=== PATIENT | male | born 1935 | race Caucasian/White ===

== ENCOUNTER → 2020-02-04 | Outpatient (CLI) | payer OTHER | LOC: LABMALL 12:42 → SJCVC 12:42 → LAB 12:42 | PROVIDERS: ATTEND Family Medicine | DX: Z20.828 Contact with and (suspected) exposure to other viral communicable diseases (principal) ==

== ENCOUNTER 2021-05-15 12:35 | Inpatient (IN) | payer OTHER, MEDICARE ==
[~2021-05-15] VITALS: Ht 180.3 cm; Wt 80.8 kg
[2021-05-15 12:38] VITALS: BP 136/55
[2021-05-15 13:24] LABS: ABSOLUTE NEUTROPHILS 6.8 thou/uL (1.4-8.2); BASOPHILS 0.4 % (0.0-2.0); EOSINOPHILS 0.5 % (0.0-3.0); HEMATOCRIT 42.3 % (42.0-52.0); HEMOGLOBIN 14.5 gm/dL (14.0-18.0); LYMPHOCYTES 16.2 % (24.0-44.0); MCH 33.7 pg (26.0-34.0); MCHC 34.2 g/dL (28.0-37.0); MCV 98.4 fL (80.0-100.0); MONOCYTES 9.5 % (1.0-8.0); PLATELET COUNT 210 thou/uL (150-400); POLYS 73.4 % (36.0-66.0); RDW 13.3 % (10.5-14.5); WBC 9.2 thou/uL (4.0-11.0)
[2021-05-15 13:30] LABS: CALCIUM 8.6 mg/dL (8.5-10.1); CREATININE 1.1 mg/dL (0.7-1.3); POTASSIUM 4.3 mmol/L (3.5-5.1)
[2021-05-15 13:36] LABS: ALBUMIN 3.9 g/dL (3.4-5.0); TOTAL BILIRUBIN 0.5 mg/dL (0.2-1.0); TOTAL PROTEIN 7.1 g/dL (6.4-8.2)
[2021-05-15 14:18] VITALS: BP 122/59
[2021-05-15 14:27] LABS: INR 1.14; PROTIME 12.4 Seconds (10.5-12.1)
[2021-05-15 14:30] VITALS: BP 154/93
--- NOTE | 2021-05-15 16:24 | EKG ---
[place] [address] [facility] [place] [address] ELECTROCARDIOGRAM REPORT Name: KAVON OSORIO Room #: 214-P ADM IN M.R.#: [id number] Admission: 05/15/21 Attend Phys: Rajeev Pittman MD Discharge: Date of : 39 Report #: [id number] [facility] ED Test Date: 2021-05-15 Test Time: 12:42:51 Pat Name: KAVON OSORIO Department: Room: 214 P Gender: M Nailer Machine: : [id number] Requested By: Mirtha Harp Order Number: [id number] MD: Sd Moore Measurements Intervals [place] Rate: 39 P: 9 AL: 306 QRS: 51 QRSD: 145 T: 29 QT: 559 QTc: 451 Interpretive Statements Sinus rhythm with complete heart block Right bundle branch block No previous ECG available for comparison Electronically Signed On 05-15-2021 16:24:43 MANUFACTURING APPLICATIONS ENGINEER by Sd Moore [email or web address] <ELECTRONICALLY SIGNED> By: Sd Moore MD, [facility] 05/15/21 1624 1242 1242 Sd Moore MD, FACC /EPI
--- NOTE | 2021-05-15 16:48 | NUR ---
PT ARRIVED TO CCU AT APPROXIMATELY 1430. VITAL SIGNS WERE STABLE EXCEPT FOR HR AND RHYTHM. PT WAS IN A THIRD DEGREE HEART BLOCK WITH HRs LOW 10-20s, HAVING LONG HEART PAUSES AND MULTIPLE P WAVES IN A ROW WITH NO QRS COMPLEXES. THE PT INITIALLY DID NOT COMPLAIN OF ANY SYMPTOMS BUT BEGAN EXPERIENCING SLIGHT DIZZINESS. BP WAS CHECKED AND WAS 157/97. D/T CARDIAC STATUS, A RAPID RESPONSE WAS CALLED AND DR. VALDOVINOS ARRIVED AT BEDSIDE. THE DECISION WAS MADE TO START THE PT ON A DOPAMINE GTT TO INCREASE HR AND GO IMMEDIATELY TO THE METHODOLOGIST FOR PACEMAKER PLACEMENT. DR. FERNANDES WAS NOTIFIED BY THE METHODOLOGIST NURSE. PT OFFICIALLY LEFT UNIT AT APPROXIMATELY 1503 FOR THE METHODOLOGIST. PRIOR TO LEAVING, THE PT REQUESTED WE TRY AND CONTACT HIS FAMILY FOR WHICH HE HAD NO CONTACT INFORMATION AVAILABLE. HIS PCP WAS CONTACTED BUT THEY DID NOT HAVE ANY NEXT OF KIN CONTACT INFORMATION. THROUGH EXTENSIVE INVESTIGATION, THE PT'S GRANDDAUGHTER, CHRIS OSORIO, WAS REACHED, AND SHE WAS ABLE TO PROVIDE CONTACT INFORMATION FOR THE PT'S SON WHO LIVES IN [place], AMARA OSORIO. NAMES OF CHILDREN AND THEIR PHONE NUMBERS WILL BE LISTED IN THE SUBSEQUENT NURSING NOTE.
--- NOTE | 2021-05-15 16:59 | NUR ---
PATIENT'S CHILDREN AND CONTACT INFORMATION: AMARA OSORIO [phone] GERSON KIM [phone] ROMINA OSORIO [phone]
[2021-05-15 20:00] VITALS: BP 140/77
[2021-05-16] VITALS (7 sets, daily range): BP systolic 140–169; BP diastolic 70–89
--- NOTE | 2021-05-16 07:04 | NUR ---
PATIENT CARES ASSUMED AT SHIFT CHANGE. PATIENT ASSESSED AND MEDS PASSED. PATIENT DID SLEEP THE MAJORITY OF THIS SHIFT. PATIENT HAD NO REQUEST. ROUNDS DONE. THE BED IS IN A LOW AND LOCKED POSITION
--- NOTE | 2021-05-16 11:30 | NUR ---
NOTIFIED THAT PATIENT IS READY FOR DC
--- NOTE | 2021-05-16 11:31 | NUR ---
ASSUMED CARE OF PATIENT AT 0700. PATIENT A&OX4, ON RA, SR ON TELE WITH NO C/O PAIN. AWITING DC ORDERS FROM .
--- NOTE | 2021-05-16 12:12 | NUR ---
PATIENT ADMITTED FOR COMPLETE HEART BLOCK. CHART REVIEWED AND DISCUSSED WITH CARE TEAM. CM MET WITH PT THIS DAY. PTS SON AT BEDSIDE. CM ROLE INTRODUCED. PT INFORMED CM HE LIVES AT HOME ALONE. PT REPORTS NO USE OF ASST DEVICE MACHINE TOOL MECHANIC AND BEING INDEP WITH ADLS AND MOBILITY MACHINE TOOL MECHANIC. PT UP ADLIB IN ROOM. APPEARED A&O. PT REPORTS NO NEEDS ONCE MEDICALLY STABLE TO DC. CM DISCUSSED POSSIBLE HOME HEALTH IF NEEDED. PT DECLINED. PLAN FOR PT TO DC TOMORROW. NO PT/OT ORDERS. CM AVAILABLE IF NEEDED FOR DC PLANNING. NO FURTHER CM INTERVENTIONS INDICATED AT THIS TIME.
--- NOTE | 2021-05-16 16:45 | NUR ---
ASSUMED CARE OF PATIENT AT 0700. PATIENT A&OX4, ON RA, UP INDEPENDENT, AND IS AV PACED ON TELE. NO C/O PAIN. ACCU CHECKS COMPLETED AND TREATED PER MAY. SHOULDER IMMOBILIZER IN PLACE. PATIENT WAS EXPECTING TO DC HOME TODAY BUT DUE TO INSURANCE WILL BE STAYING AN ADDITIONAL NIGHT AND WILL DC IN THE MORNING. PATIENT PROGRESSING TOWARD POC.
--- NOTE | 2021-05-17 01:25 | CATHLAB ---
[facility] [address] [place] [address] INVASIVE PROCEDURE REPORT Name: KAVON OSORIO Room #: 214-P [facility] IN M.R.#: [id number] Admission: 05/15/21 Attend Phys: Rajeev Pittman MD Discharge: Date of : 39 Report #: [id number] THIS REPORT FOR: cc: Alexis Slaughter MD, Neal A. MD Lammoglia, Francisco J. MD ~ APPROVED REPORT Study performed: 05/15/2021 15:16:25 Patient Status: In-Patient Room #: Event Personnel: Javier Quezada MD Exam: Insertion of Dual Chamber Permanent Pacemaker Indications: Symptomatic High grade A-V Block, Bradycardia Conscious Sedation Versed 3.0 mg demoral ivp 12.5mg x 2 Implanted Devices: Medtronic: Type of Device: PPM-D; Model #: W3DR01; Serial #: [id number]; Use by: 10/04/2022 Medtronic: RA Lead: Model #: 4076-52; Serial #: [id number]; Use by: 02/02/2023 Medtronic: RV Lead: Model #: 4076-58; Serial #: [id number]; Use by: 02/02/2023 Procedure The patient underwent informed consent. We discussed the details of the procedure including the risks, which include, but not limited to bleeding, infection, vascular damage, cardiac perforation, and pneumothorax. He understood these risks and was willing to proceed. As such, he was brought to the EP/Cardiac Catheterization laboratory in a fasting and sedated state and prepped and draped in a The patient underwent conscious sedation, with no related complications. The patient was brought to the EP/Cardiac Catheterization laboratory and the left chest and shoulder were prepped and draped in a sterile manner. During this case, Fluoroscopy and no contrast were used for imaging. IV conscious sedation was used throughout procedure with appropriate monitoring and was performed in the presence of a registered nurse who was an independent trained observer other than the physician performing the procedure. [address] [address] INVASIVE PROCEDURE REPORT Name: KAVON OSORIO [facility] Room #: 214-P [facility] IN .R.#: [id number] Admission: 05/15/21 Attend Phys: Rajeev Pittman, Discharge: Date of : 39 Report #: [id number] The left subclavian region was infiltrated with 2% Lidocaine subcutaneous anesthesia. A transverse incision was made in the left upper chest cavity. The subcutaneous pocket was formed via blunt dissection. Percutaneous venous access was achieved and an introducer sheath was inserted into the left Subclavian vein. Sheaths were positions using the modified Seldinger technique Through the introducer sheaths the atrial and ventricular lead wires were positioned in the right atrial appendage and right ventricular apex respectively. Capturing and sensing thresholds were verified. Electrode Parameters P Wave: 1.9mV R Wave: NA Atrial Threshold: 0.5V @ 0.4ms Ventricular Threshold: 0.5V @ 0.4ms Atrial Resistance: 380 Ohms Ventricular Resistance: 551 Ohms Dual Chamber The atrial and ventricular leads were then secured using nonabsorbable sutures. The subcutaneous pocket was irrigated with ancef antibiotic solution.The atrial and ventricular leads were attached to the appropriate receptacles on the pulse generator and set screws firmly tightened to insure adequate contact and stability. The lead and pulse generator were placed into the subcutaneous pocket. Sharp and sponge counts were confirmed to be correct. At this time the pocket was closed subcutaneously with a 2-0 nonabsorbable suture in a running locking sticth and the skin was closed with a 3-0 absorbable in subcuticular sticth. The operative site was dressed in sterile fashion with steri strips, 4x4, op-site and the patient was transferred to the floor in stable condition. Complications The patient tolerated the procedure well and there were no complications associated with the procedure. Findings Specimens Removed: N/A Conclusion 1. Successful insertion of a medtronics dual chamber pacemaker [facility] [address] [place] [address] INVASIVE PROCEDURE REPORT Name: KAVON OSORIO Room #: 214-P [facility] IN .R.#: [id number] Admission: 05/15/21 Attend Phys: Rajeev Pittman, Discharge: Date of : 39 Report #: [id number] Recommendations 1. routine post pacemaker insertion protocol <ELECTRONICALLY SIGNED> By: Javier Quezada MD 05/17/21123 3 3 Javier Quezada MD /INF
[2021-05-17 05:20] VITALS: BP 156/78
[2021-05-17 07:37] VITALS: BP 174/85
[2021-05-17] MEDS ORDERED: BENAZEPRIL HCL20 MG PO (09:06)
[2021-05-17] MEDS ORDERED: LIPITOR40 MG PO (09:06)
[2021-05-17 09:13] VITALS: BP 156/70
[2021-05-17] MEDS ORDERED: BENICAR40 MG PO (09:13)
--- NOTE | 2021-05-17 09:43 | NUR ---
ASSUMED CARE OF PATIENT AT 0700. PATIENT REMAINS A&OX4, ON RA, AV PACED ON TELE. NO C/O PAIN. DRESSING REMAINS IN PLACE OVER PACEMAKER INCISION. PATIENT GIVEN MORNING MEDS PER MAY AND HAS BEEN DISCHARGED. WHEELED OUT TO WAITING VEHICLE BY STAFF. PATIENT PROGRESSED TOWARD POC.
== END 2021-05-17 10:10 | disposition home or self-care (01) | DRG 242 ==
LOC: ER 12:35 → 2N 14:20 → ER 14:20 → 2N 14:39
PROVIDERS: Emergency Medicine; ADMIT Internal Medicine; ATTEND Internal Medicine
PROC: 0JH606Z Insertion of Pacemaker, Dual Chamber into Chest Subcutaneous Tissue and Fascia, Open Approach (ICD-10-PCS; principal; 2021-05-15)
PROC: 02H63JZ Insertion of Pacemaker Lead into Right Atrium, Percutaneous Approach (ICD-10-PCS; principal; 2021-05-15)
PROC: 02HK3JZ Insertion of Pacemaker Lead into Right Ventricle, Percutaneous Approach (ICD-10-PCS; principal; 2021-05-15)
DX: I44.2 Atrioventricular block, complete (principal); I50.33 Acute on chronic diastolic (congestive) heart failure; I11.0 Hypertensive heart disease with heart failure; E78.5 Hyperlipidemia, unspecified; E78.00 Pure hypercholesterolemia, unspecified; E11.9 Type 2 diabetes mellitus without complications; Z20.822 Contact with and (suspected) exposure to COVID-19; Z79.899 Other long term (current) drug therapy; Z85.828 Personal history of other malignant neoplasm of skin; Z82.3 Family history of stroke; Z82.49 Family history of ischemic heart disease and other diseases of the circulatory system; Z83.3 Family history of diabetes mellitus; Z87.891 Personal history of nicotine dependence
CPT/HCPCS: 10081